=== PATIENT | female | born 1990 | race Caucasian/White ===

== ENCOUNTER 2020-11-10 16:11 | Emergency (ER) | payer OTHER, SELFPAY ==
[2020-11-10 16:22] VITALS: BP 130/83; PULSE 95; RESP 12; TEMP 36.9; O2SAT 100
--- NOTE | 2020-11-10 16:33 | ED.URI ---
HPI - URI/Sore Throat General Chief Complaint: Upper Respiratory Infection Stated Complaint: ITCHY THROAT/CONGESTION Source: patient and RN notes reviewed Limitations: no limitations History of Present Illness HPI Narrative: The patient, previously mostly healthy and here with other sick family members, presents with scratchy throat. Mother brought her child in for URI type symptoms and, mentions she has a shorter 1 day history of scratchy, itchy throat and nasal congestion. No fever, earache, cough, wheezing/sneezing, itchy eyes or nose; no prior Covid vaccinations, no loss of taste/smell, CP, vomiting/diarrhea, rash, S OB. Symptoms are very mild Related Data Home Medications Medication Instructions Recorded Confirmed sertraline 100 mg PO DAILY 11/10/20 11/10/20 Allergies Allergy/AdvReac Type Severity Reaction Status Date / Time No Known Allergies Allergy Mild Verified 11/10/20 16:24 No Known Allergies Allergy Other Uncoded 11/10/20 16:24 Review of Systems Review of Systems: Narrative: General/Constitutional: No weight loss,fever Eyes: N0: Redness,discharge Ears/Nose/Throat: No: Epistaxis,ear discharge Respiratory: Denies: Hemoptysis Gastrointestinal: No Vomiting, Bleeding-rectal Skin: No Lumps, eruption Neurologic: No Focal Weakness,Sz Hematologic: Denies: Petechiae/Purpura Psychiatric: No: Suicida ideationl All Other Systems: Reviewed and Negative PMFSH Comments At time of signature, agree with nursing past medical, surgical, social and family history. There is no relevant family history pertinent to the presenting complaint Exam Narrative: Exam Narrative: General Appearance: Well appearing, Well nourished EYE: PERRLA, Conjunctiva clear Ears: Auditory canal normal, TM normal Nose: Rhinorrhea, Mucousal erythema Mouth/Throat: MM moist, Uvula midline, Pharyngeal erythema Neck: Supple, No adenopathy Respiratory: No respiratory distress, Breath sounds equal, Clear to auscultation Cardiovascular: RRR, No JVD Musculoskeletal: Non tender, Normal strength Skin: Warm, Dry Neurological: A&O x3, CN II-XII intact Psychiatric: Normal mood, Normal affect Course Vital Signs Vital signs: Vital Signs Temperature 98.5 F 11/10/20 16:22 Pulse Rate 95 11/10/20 16:22 Respiratory Rate 12 11/10/20 16:22 Blood Pressure 130/83 11/10/20 16:22 Pulse Oximetry 100 11/10/20 16:22 Temperature 98.5 F 11/10/20 16:22 Pulse Rate 95 11/10/20 16:22 Respiratory Rate 12 11/10/20 16:22 Blood Pressure 130/83 11/10/20 16:22 Pulse Oximetry 100 11/10/20 16:22 MDM - URI/Sore Throat Lab Data Labs: Strep Screen Presumptive Negative *(Reference Range: Negative)* Discharge Plan Discharge Clinical Impression: Pharyngitis Qualifiers: Pharyngitis/tonsillitis etiology: unspecified etiology Qualified Code(s): J02.9 - Acute pharyngitis, unspecified Patient Disposition: Home, Self-Care Condition: Stable Instructions: Antibiotic Form, Pharyngitis (ED) Prescriptions: New azithromycin 250 mg tablet See Rx Instructions .ROUTE .COMPLEX Qty: 6 RF: 0 lidocaine HCl [Lidocaine Viscous] 2 % solution 5 ml MUCOUS MEM QID PRN (Reason: pain) Qty: 100 RF: 0 No Action sertraline 100 mg tablet 100 mg PO DAILY RF: 0 Other Ambulatory Orders: SARS-CoV-2 RNA, Qual RT-PCR (Routine) Location: Determined by Patient Ordered By: Juan Rivera Follow-up/Referrals: UNKNOWN,DOCTOR [Primary Care Provider] -
== END 2020-11-10 17:14 | disposition home or self-care (01) ==
PROVIDERS: Emergency Provider Emergency Medicine
DX: J02.9 Acute pharyngitis, unspecified (principal); Z20.822 Contact with and (suspected) exposure to COVID-19; F41.9 Anxiety disorder, unspecified
CPT/HCPCS: 87081; 87880; 99213; G0463

== ENCOUNTER 2022-01-07 13:07 | Outpatient (CLI) | payer OTHER, SELFPAY ==
[2022-01-07 13:46] LABS: Free T4 Free Thyroxine 0.89 ng/dL (0.76-1.46); Thyroid Stimulating Hormone 1.31 uIU/mL (0.36-3.74)
[2022-01-09 12:22] LABS: Vitamin D 25 Hydroxy 21 ng/mL (30-100)
== END 2022-01-07 13:08 | disposition home or self-care (01) ==
LOC: CHSLAB 13:09
PROVIDERS: Visit Provider Obstetrics & Gynecology Gynecology
DX: E55.9 Vitamin D deficiency, unspecified (principal); Z83.49 Family history of other endocrine, nutritional and metabolic diseases
CPT/HCPCS: 36415; 82306; 84439; 84443

== ENCOUNTER 2022-08-13 11:42 | Emergency (ER) | payer OTHER, SELFPAY ==
[2022-08-13 11:50] VITALS: BP 129/84; PULSE 97; RESP 16; TEMP 36.9; O2SAT 99
--- NOTE | 2022-08-13 11:51 | ED.ABDPAIN ---
HPI - Abdominal Pain General Chief Complaint: Abdominal Pain Stated Complaint: LOWER ABD PAIN Time Seen by Provider: 08/13/22 11:51 Source: patient and RN notes reviewed History of Present Illness HPI narrative: Patient is a 32-year-old female who presents to the Urgent Care with complaints of lower right-sided abdominal discomfort. Patient states it started today. Denies any chance of . States that she does have a lot of gas pains and intermittent nausea occasionally which is nothing new. Patient states that she just got off her menstrual cycle yesterday and was abnormal. Patient states that she spotted, started to cycle and then have light spotting for 3 days. Denies any fevers, vomiting or diarrhea. Patient does state a history of a ruptured ovarian cyst on the right side approximately 15 years ago. No other acute complaints. No acute distress noted. Patient aware of the plan of care. Some parts of this dictation were generated by voice recognition software and may contain typographical and/or grammatical inaccuracies. Related Data Home Medications Medication Instructions Recorded Confirmed sertraline 100 mg tablet 100 mg PO DAILY 11/10/20 11/10/20 Allergies Allergy/AdvReac Type Severity Reaction Status Date / Time No Known Allergies Allergy Mild Verified 08/13/22 12:25 Review of Systems Review of Systems: CONSTITUTIONAL: Denies fever, chills, or sweats. EYES: Denies visual changes, redness, or discharge. ENT: Denies rhinorrhea, congestion, sore throat, or otalgia. CARDIOVASCULAR: Denies chest pain, palpitations, or edema. RESPIRATORY: Denies cough or dyspnea. GASTROINTESTINAL: Reports of right lower abdominal discomfort with intermittent nausea and gas pains GENITOURINARY: Denies dysuria or hematuria. SKIN: Denies rash or itching. MUSCULOSKELETAL: Denies back pain, joint pain, or myalgia. NEUROLOGIC: Denies headache, numbness, or weakness. All other systems reviewed are negative, except as documented in HPI. PMFSH Comments At the time of my signature, I reviewed and agree with the nursing past medical, surgical, social, and family history. There is no relevant family history pertinent to the patient complaint. Exam Narrative: GENERAL: This is a well-nourished, well-developed patient, in no apparent distress. HEAD: normocephalic, atraumatic. EYES: PERRL. Sclera clear/white. Vision is grossly intact. EARS: External ears normal NOSE: External nose normal with no obvious nasal discharge, nares without redness, no rhinorrhea. THROAT: Mucous membranes moist NECK: Neck supple RESPIRATORY: Clear to auscultation. Breath sounds equal bilaterally. No wheezes, rales, or rhonchi. GASTROINTESTINAL: Abdomen soft, mild right suprapubic tenderness, nondistended. Bowel sounds are hyper active. SKIN: warm, intact with no suspicious lesions or rash, good texture and turgor. NEURO: awake, alert, and oriented to person, place and time. There were no obvious focal neurologic abnormalities. EXTREMITIES: No clubbing, cyanosis, or edema. BACK: Negative bilateral CVA tenderness Course Course Level of Care: Express Care Visit Vital Signs Vital signs: Vital Signs Temperature 98.4 F 08/13/22 11:50 Pulse Rate 97 08/13/22 11:50 Respiratory Rate 16 08/13/22 11:50 Blood Pressure 129/84 08/13/22 11:50 Pulse Oximetry 99 08/13/22 11:50 Temperature 98.4 F 08/13/22 11:50 Pulse Rate 97 08/13/22 11:50 Respiratory Rate 16 08/13/22 11:50 Blood Pressure 129/84 08/13/22 11:50 Pulse Oximetry 99 08/13/22 11:50 Reviewed MDM - Abdominal Pain MDM Narrative Medical decision making narrative: Reviewed lab results with the patient. She is aware that urinalysis is not indicative of urinary tract infection. Symptoms may be consistent with repeat ovarian cyst. Unfortunately our facility is unable to evaluate ovarian cyst due to the lack of resources. We do not have ultrasound. If she devel
== END 2022-08-13 12:35 | disposition home or self-care (01) ==
PROVIDERS: Emergency Provider Nurse Practitioner Family; PCP Family Medicine
DX: R10.31 Right lower quadrant pain (principal)
CPT/HCPCS: 81003; 99212; G0463

== ENCOUNTER 2022-08-21 12:20 | Outpatient (CLI) | payer OTHER, SELFPAY ==
--- NOTE | ~2022-08-21 | US_ITS ---
EXAMINATION: US pelvic complete w TV DATE: 08/21/2022 12:58 INDICATION: Right pelvic pain. History of cysts. Comparison:Ultrasound dated 09/30/2018 TECHNIQUE: Multiple transabdominal and endovaginal sonographic images of the pelvis performed. FINDINGS: The uterus measures 9.1 x 6.0 x 4.4 cm. The endometrial complex measures 1.3 cm. The right ovary measures 2.4 x 2.3 x 2.7 cm and the left ovary measures 2.2 x 1.8 x 2.2 cm. There is trace fluid in the cervix. There are nabothian cysts. There is a left ovarian cyst measuring 2.1 cm. There is a right ovarian cyst measuring 1.8 cm. There are small follicles in each ovary. Normal doppl er signal in both ovaries. There is no free fluid in the pelvis. There are no abnormal masses seen on either side. IMPRESSION: 1. Nabothian cysts with trace fluid in the cervix. 2: Endometrial thickening measuring 1.3 cm. 3: Bilateral ovarian cysts, largest measuring 2.1 cm. Reviewed, dictated and finalized at location A. [employer]IC[employer] PHYSICIAN
== END 2022-08-21 12:21 | disposition home or self-care (01) ==
LOC: CHSIMG 12:22
PROVIDERS: PCP Family Medicine; Visit Provider Nurse Practitioner
DX: R10.2 Pelvic and perineal pain (principal); N88.8 Other specified noninflammatory disorders of cervix uteri; R93.89 Abnormal findings on diagnostic imaging of other specified body structures; N83.202 Unspecified ovarian cyst, left side; N83.201 Unspecified ovarian cyst, right side
CPT/HCPCS: 76830; 76856

== ENCOUNTER 2022-09-15 18:18 | Outpatient (CLI) | payer OTHER, SELFPAY ==
--- NOTE | ~2022-09-15 | XR_ITS ---
AP view of the pelvis and AP and lateral views of the bilateral hips Clinical history: Pain Findings: No acute fracture or dislocation is seen. Osseous alignment is anatomic. Bilateral hip and SI joint spaces are preserved. Soft tissues are unremarkable. Impression: No significant abnormality is seen. Reviewed, dictated and finalized at location . Impression: No significant abnormality is seen.
[2022-09-15 19:12] LABS: Hematocrit 44.4 % (35.0-49.0); Hemoglobin 15.4 g/dL (12.0-15.0); Mean Corpuscular HGB Conc 34.7 g/dL (32.0-36.0); Mean Corpuscular Hemoglobin 32.2 pg (27.0-31.0); Mean Corpuscular Volume 92.9 fL (78.0-102.0); Mean Platelet Volume 10.1 fl (9.2-11.8); Platelet Count Result 352 K/mm3 (150-420); Red Blood Count 4.78 M/mm3 (4.20-5.40); Red Cell Distribution Width 11.7 % (11.6-14.4); White Blood Count 6.9 K/mm3 (4.8-10.8)
[2022-09-15 20:22] LABS: Alanine Aminotransferase 35 U/L (14-59); Albumin Level 4.1 g/dL (3.4-5.0); Alkaline Phosphatase 63 U/L (46-116); Anion Gap 9 mmol/L (8-16); Aspartate Amino Transferase 23 U/L (15-37); Bilirubin,Total 0.3 mg/dL (0.00-1.00); Blood Urea Nitrogen 8 mg/dL (7-18); Carbon Dioxide 28 mmol/L (21-32); Chloride 103 mmol/L (98-108); Cholesterol 253 mg/dL (0-200); Estimated Glomerular Filt Rate > 60; Glucose 93 mg/dL (70-99); HDL Direct 38 mg/dL (40-60); LDL Cholesterol Calculated 138 mg/dL (<130); Osmolality Calculated 288 mOsm/kg (285-295); Potassium 4.3 mmol/L (3.5-5.1); Sodium 140 mmol/L (136-145); Total Protein 7.4 g/dL (6.4-8.2); Triglycerides 387 mg/dL (0-150); Vitamin B12 523 pg/mL (193-986)
[2022-09-15 20:23] LABS: Folic Acid > 20.0 ng/mL (8.6->20)
[2022-09-21 20:02] LABS: Vitamin D 25 Hydroxy 29 ng/mL (30-100)
== END 2022-09-15 18:19 | disposition home or self-care (01) ==
PROVIDERS: PCP Family Medicine; Visit Provider Nurse Practitioner Family
DX: R53.83 Other fatigue (principal); Z68.39 Body mass index [BMI] 39.0-39.9, adult; K92.89 Other specified diseases of the digestive system; M25.551 Pain in right hip
CPT/HCPCS: 36415; 73521; 80053; 80061; 82306; 82607; 82746; 85027; 86038

== ENCOUNTER 2022-11-04 13:52 | Emergency (ER) | payer OTHER, SELFPAY ==
--- NOTE | ~2022-11-04 | XR_ITS ---
EXAM: XR hip LT min 2V DATE: 11/04/2022 15:55 HISTORY: LEFT POSTERIOR HIP PAIN ONE WEEK. NKI. . COMPARISON: None available. FINDINGS: Normal mineralization. No fracture or dislocation. No lytic or blastic lesion. Degenerativ e change at the pubic symphysis. No erosion or periosteal change. Soft tissues within normal limits. Partial sacralization of L5 on the right, with pseudoarthrosis and facet arthropathy on the right, al l of which may cause of chronic low back pain in some patients. IMPRESSION: No acute osseous finding in the left hip. Osteitis pubis. Reviewed, dictated and finalized at location K.
[2022-11-04 14:00] VITALS: BP 152/97; PULSE 106; RESP 18; TEMP 36.6; O2SAT 98
--- NOTE | 2022-11-04 14:16 | ED.EXTPRO ---
HPI - Extremity Problem General Chief complaint: Extremity Problem,Nontraumatic Stated complaint: left hip pain Time Seen by Provider: 11/04/22 14:10 Source: patient and RN notes reviewed Mode of arrival: ambulatory Limitations: no limitations History of Present Illness HPI Narrative: Patient states that she has been having some hip pain for a long time now but worsened last 7 days. She has been seen in the office for this at that time had right hip pain and had an x-ray in September the visit was in August. She denies any new injury. She says it just hurts to walk on hurts to lay on the left side. Complaint: extremity pain Onset (ago): week(s) (1) Pain Consistency: constant Location: left and lower extremity (hip) Quality: aching and dull Radiation: distal ( into her calf that is why she came in) Relieving factors: nothing Exacerbating factors: range of motion, weight bearing and walking Associated symptoms: denies other symptoms Related Data Allergies Allergy/AdvReac Type Severity Reaction Status Date / Time No Known Allergies Allergy Mild Verified 08/27/22 14:25 PMFSH Past Medical History Medical History BMI 39.0-39.9,adult Depression Elevated lipids Low vitamin D level Social History Social History Smoking status: Unknown if ever smoked Exam Const: General: healthy appearing and no acute distress Nutritional Appearance: well nourished and obese Orientation/consciousness: patient oriented x3 Limitations: no limitations Other: Female nurse in room during examination. HENMT: Head: normal to inspection Ears: external ears normal Face/Nose/Sinus: Normal external nose present Face and sinus: normal facial exam Mouth: Yes moist mucous membranes Eyes: Conjunctivae: conjunctivae normal Pupils: Equal, round and reactive pupils present EOM: EOMs intact bilaterally Neck: Neck: normal visual inspection Resp: Effort & Inspection: normal respiratory effort Auscultation: clear to auscultation bilaterally Cardio: Rate: regular rate Rhythm: regular rhythm GI: GI Palp: Yes Soft to palpation and No Tenderness to palpation present (GI) Auscultation: normal bowel sounds Back/Spine/Pelvis: Cervical Spine: cervical ROM normal Thoracic/Lumbar Spine: thoraco-lumbar ROM normal, No paraspinal muscle tenderness, No thoraco-lumbar spasm and No lumbar spinal tenderness Skin: General skin exam: normal color Rashes: no rashes Neuro: General: patient oriented x3, moves all extremities, no focal motor deficits and CN's II-XI intact bilaterally Speech: normal speech Gait exam (Neuro): Normal gait present Extrem: General: normal exam except as noted, no clubbing, cyanosis or edema and no calf tenderness Right lower extremity: hip/thigh Details: tenderness Location: of the hip Location: posteriorly and over the greater trochanter and abnormal ROM Details: pain with passive ROM during Details: to ABduction, to flexion, to internal rotation and to external rotation Psych: Mental Status: mental status grossly normal Affect: normal affect Attitude: cooperative Course Vital Signs Vital signs: Vital Signs Temperature 36.6 C 11/04/22 14:00 Pulse Rate 106 H 11/04/22 14:00 Respiratory Rate 18 11/04/22 14:00 Blood Pressure 152/97 H 11/04/22 14:00 Pulse Oximetry 98 11/04/22 14:00 Oxygen Delivery Room Air 11/04/22 14:00 Temperature 36.9 C 11/04/22 16:39 Pulse Rate 73 11/04/22 16:39 Respiratory Rate 18 11/04/22 16:39 Blood Pressure 119/72 11/04/22 16:39 Pulse Oximetry 97 11/04/22 16:39 Oxygen Delivery Room Air 11/04/22 16:39 MDM - Extremity (Nontraumatic) Differential Diagnosis Differential diagnosis: Likely other ( osteoarthritis, muscle strain, overuse injury, lumbar pain) Discharge Plan Discharge Clinical Impression: Acute hip pain Qualifiers: Laterality: lef
[2022-11-04 14:59] VITALS: BP 125/80
[2022-11-04] MEDS: KETOROLAC (*BKC) 60 MG/2 ML VIAL (16:04)
[2022-11-04 16:39] VITALS: BP 119/72; PULSE 73; RESP 18; TEMP 36.9; O2SAT 97
== END 2022-11-04 16:47 | disposition home or self-care (01) ==
PROVIDERS: Emergency Provider Emergency Medicine; PCP Nurse Practitioner Family
DX: M25.552 Pain in left hip (principal)
CPT/HCPCS: 73502; 96372; 99283; J1885

== ENCOUNTER 2022-11-05 13:06 | Outpatient (RCR) | payer OTHER, SELFPAY ==
--- NOTE | 2022-11-05 13:49 | PTOPEVAL1 ---
Assessment and note entered by Khoi Smith Evaluation Information Assessment Status Evaluation Diagnosis right hip pain Onset 12/04/21 Subjective Information Pt. reports that she began developing hip pain in December of last year. She describes her pain in the area of the left buttock. She reports that her pain is constant. She reports that she cannot lay on the left side due to pain. She does get mm. cramps and spasms if attempting to lay on the left side. She reports that long periods of standing will ease her pain. She reports sitting on the left side also will increase pain. She reports that her pain as worsened over the past year. She states that she has a 3 year old son that she cannot lift due to pain. She is currently not working. She states that she cannot drive due to increasing pain with attempting to drive. She reports that she is losing sleep due to pain. Her goal is to decrease her hip pain. Reported Pain Level Pain Score 5: Self Report Assessment PT Clinical Summary Pt. is a 32 year old female who enters the clinic with low back pain/left hip pain. She presents with indication of lumbar instability as noted by pain with multidirectional movement. She currently presents with abdominal and proximal l.e . weakness, impaired postural awareness and pain. Continued skilled PT is indicated in order to improve these areas to allow the pt. to be able to complete all IADL's with improved comfort. Plan of Care Interventions Electrical Stimulation,Hot Pack/Cold Pack,Manual Therapy,Neuro Re-education,Therapeutic Activities, Therapeutic Exercise PT Services Indicated Yes Treatment Frequency and 2x/week x 10 visits Duration These treatments will address the objective and functional deficits as defined above. The patient will be advanced safely and appropriately in order for the patient to progress towards his/her prior level of function. Additional exercises will be introduced and as well as a comprehensive home exercise program upon discharge, if needed, ?to ensure carryover of functional gains achieved in the clinic. This treatment plan has been reviewed and agreement upon by the patient.
--- NOTE | 2022-12-25 15:10 | PTOPDC ---
Assessment and note entered by Anca Cornejo DPT Evaluation Information Assessment Status Re-evaluation Diagnosis right hip pain Onset 12/04/21 Subjective Information Patient reports her pain has greatly improved. She reports she has been able to return to driving and yard work. She does report she gets muscle spasms at time when she stands up. She reports she is compliant with HEP Reported Pain Level Pain Score 0: Self Report Assessment PT Clinical Summary Patient was seen for 10 visits of skilled PT. She made good progress towards goals during POC. She demonstrates full lumbar ROM with no increase in pain, improved B LE strength and improved flexibility. She reports ability to return to driving and house hold work at [employer]. She is independent with HEP and is appropriate for DC. Plan of Care PT Services Indicated No
== END 2022-12-25 15:19 | disposition home or self-care (01) ==
LOC: CHSPT 13:06
PROVIDERS: PCP Nurse Practitioner Family; Visit Provider Nurse Practitioner Family
DX: M25.551 Pain in right hip (principal)
CPT/HCPCS: 97110; 97112; 97140; 97161

== ENCOUNTER 2024-05-18 16:58 | Emergency (ER) | payer OTHER, SELFPAY ==
[2024-05-18] VITALS (32 sets, daily range): BP systolic 113–148; BP diastolic 83–107; PULSE 102–134; RESP 15–25; TEMP 37.3; O2SAT 93–99
--- NOTE | ~2024-05-18 | CT_ITS ---
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 Pulmonary embolus suspected clinically TECHNIQUE: Computed tomographic angiography (CTA) of the chest was performed with 100 mL Omnipaque-35 0 intravenous contrast. The dose-length product was 229.53 mGy-cm. Maximum intensity projection 3D-re constructions of the aorta and other arteries were constructed by the technologist on a separate work station. COMPARISON: None. FINDINGS: No filling defects are identified within the main or proximal pulmonary arteries. The main pulmonary artery is not enlarged. The heart is of normal size, without pericardial effusion. Consolidation is present within the superior segment of the right lower lobe, consistent with a foca l infiltrate. The remainder of the lungs are clear. The upper abdomen is unremarkable IMPRESSION: Infiltrate within the superior segment of the right lower lobe. No pulmonary embolus. No aortic dissection. Reviewed, dictated and finalized at location A. BUILDER AND REPAIRER
--- NOTE | 2024-05-18 17:07 | ECG_ITS ---
Test Date: 2024-05-18 17:04:56 Measurements Intervals [place] Rate: 119 P: 59 MA: 134 QRS: 84 QRSD: 101 T: 55 QT: 319 QTc: 449 Interpretive Statements SINUS TACHYCARDIA ABNORMAL ECG No previous ECG available for comparison Electronically Signed On 05-19-2024 05:35:05 [employer] by Gareth Alvarado D.O.
--- NOTE | 2024-05-18 17:27 | ED_ITS ---
HPI - URI/Sore Throat General Chief Complaint: Upper Respiratory Infection Stated Complaint: elevated heart rate Time Seen by Provider: 05/18/24 17:27 Source: patient Mode of arrival: ambulatory Limitations: no limitations History of Present Illness HPI Narrative: 33-year-old female history of OCD, depression, dyslipidemia presented to her primary care physician with a 1 week history of -- subjective fever -- cough which is productive of mucoid sputum. She has had episodes of blood tinged sputum. -- Shortness of breath. No paroxysmal nocturnal dyspnea. -- Sore throat. No odynophagia .-- No nasal congestion but feels the sinuses are congested and has postnasal drip. MD elicited complaint: fever, cough, sore throat and sinus pain Pertinent past history: sinusitis Onset (ago): day(s) ( Seven days) Consistency: constant Description of mucous: clear Able to tolerate fluids by mouth: Yes Exacerbating factors: nothing Relieving factors: nothing Context: sick contacts Associated symptoms: denies other symptoms, fever, nasal congestion, cough and shortness of breath Treatments prior to arrival: none Related Data Allergies Allergy/AdvReac Type Severity Reaction Status Date / Time No Known Allergies Allergy Mild Verified 05/18/24 16:04 Review of Systems Review of Systems: All systems reviewed & are unremarkable except as noted in HPI and below Constitutional: Constitutional: Reports as per HPI, Reports no additional constitutional complaints and Reports fever(s) Eyes: Eyes: Reports as per HPI and Reports no additional eye complaints ENT: Reports system reviewed and no additional complaints, except as documented and Reports as per HPI Cardiovascular: Cardiovascular: Reports as per HPI and Reports no additional cardiovascular complaints Respiratory: Respiratory: Reports as per HPI, Reports no additional respiratory complaints, Reports cough and Reports dyspnea Gastrointestinal: Gastrointestinal: Reports as per HPI and Reports no additional gastrointestinal complaints Comments: no nausea/vomiting /abdominal pain / diarrhea. Genitourinary: Genitourinary: Reports no additional female genitourinary complaints Musculoskeletal: Musculoskeletal: Reports no additional musculoskeletal complaints, Reports as per HPI and Reports myalgias Integumentary/Breasts: Skin/Breast: Reports system reviewed and no additional complaints, except as docu and Reports as per HPI Neurologic: Reports system reviewed and no additional complaints, except as documented and Reports as per HPI Psychiatric: Psychiatric: Reports no additional psychiatric complaints and Reports as per HPI Endocrine: Endocrine: Reports no additional endocrine complaints and Reports as per HPI Hematologic/Lymphatic: Hematologic/Lymphatic: Reports no additional hematologic/lymphatic complaints and Reports as per HPI Allergic/Immunologic: Allergic/Immunologic: Reports no additional allergic/immunologic complaints and Reports as per HPI [facility] Past Medical History Medical History BMI 39.0-39.9,adult Depression Elevated lipids Low vitamin D level Family History Family History Grandparent Carcinoma of skin Heart disease Social History Social History Smoking packs per day: 0 Smoking cigarettes per day: 0.0 Smoking status: Never smoker Exam Narrative: Hypertension with a blood pressure of 143/91. Oxygen saturation 96% on room air with a respiratory Const: General: no acute distress Nutritional Appearance: well nourished Orientation/consciousness: patient oriented x3 Limitations: no limitations HENMT: Head: normal to inspection Ears: external ears normal Face/Nose/Sinus: Normal external nose present Face and sinus: normal facial exam Mouth: Yes Normal oral and palatal mucosa present Throat: posterior oropharynx normal Eyes: Conjunctivae: conjunctivae normal Pupils: Equal, round and reactive pupils present EOM: EOMs intact bilaterally Direct Ophthalmoscopy: no photophobia Neck: Neck: normal visual inspection, no lymphadenopathy and no meningeal signs Chest: Chest palpation & inspection: normal inspection of the chest Resp: Effort & Inspection: normal respiratory effort Auscultation: clear to auscultation bilaterally Cardio: Rate: tachycardic Rhythm: regular rhythm GI: GI Palp: Yes Soft to palpation Other: No tenderness/ rigidity /rebound. : General: Yes no CVA tenderness Back/Spine/Pelvis: Back: no CVA tenderness Skin: General skin exam: normal color Rashes: no rashes Wounds: no wounds Neuro: General: patient oriented x3, moves all extremities, no meningeal signs, no focal motor deficits and CN's II-XI intact bilaterally Cranial nerves: Yes Nystagmus not present Speech: normal speech Gait exam (Neuro): Normal gait present Extrem: General: normal to inspection and no clubbing, cyanosis or edema Psych: Mental Status: mental status grossly normal Affect: normal affect Attitude: cooperative Course Course Emergency Course: right lower lobe pneumonia /community-acquired pneumonia-- patient tested negative for influenza/ RSV / COVID. Blood cultures have been done. Patient got Rocephin and Zithromax. Will discharge home on Zithromax and amoxicillin upper respiratory tract infection Vital Signs Vital signs: Vital Signs Pulse Rate 118 H 05/18/24 16:58 Oxygen Delivery Room Air 05/18/24 16:58 Temperature 37.3 C 05/18/24 17:00 Pulse Rate 106 H 05/18/24 20:00 Respiratory Rate 25 H 05/18/24 19:15 Blood Pressure 129/92 H 05/18/24 20:00 Pulse Oximetry 95 05/18/24 20:00 Oxygen Delivery Room Air 05/18/24 20:00 MDM - URI/Sore Throat MDM Narrative Medical decision making narrative: community-acquired pneumonia upper respiratory tract infection Differential Diagnosis Differential diagnosis: Likely viral infection and bronchitis Medical Records Attestation: I reviewed the patient's medical records. Lab Data Attestation: I reviewed the patient's lab results. 05/18/24 17:57 05/18/24 17:57 Labs: Lab Results 05/18/24 05/18/24 05/18/24 Range/Units 17:12 17:54 17:57 WBC 6.2 (4.8-10.8) K/mm3 RBC 4.66 (4.20-5.40) M/mm3 Hgb 14.8 (12.0-15.0) g/dL Hct 40.9 (35.0-49.0) % MCV 87.8 (78.0-102.0) fL MCH 31.8 H (27.0-31.0) pg MCHC 36.2 H (32-36) g/dL RDW 11.7 (11.6-14.4) % Plt Count 287 (150-420) K/mm3 MPV 10.2 (9.2-11.8) fl Immature Gran % (Auto) 0.3 H (0.0-0.0) % Neut % (Auto) 74.1 H (50.0-70.0) % Lymph % (Auto) 13.5 L (18.0-42.0) % [place] % (Auto) 11.0 (2.0-11.0) % Eos % (Auto) 0.8 L (1.0-6.0) % Baso % (Auto) 0.3 (0.0-1.0) % Lymph # (Auto) 0.83 L (1.10-4.50) K/mm3 [place] # (Auto) 0.68 (0.10-0.90) K/mm3 Eos # (Auto) 0.05 (0.02-0.50) K/mm3 Baso # (Auto) 0.02 (0.00-0.10) K/mm3 Abs Immat Gran (auto) 0.02 H (0.00-0.00) K/mm3 Absolute Neuts (auto) 4.56 (1.70-7.20) K/mm3 Absolute Nucleated RBC 0.00 (0.00-0.00) K/mm3 Nucleated RBC % 0.0 (0-0.0) % PT 11.5 (9.50-12.1) Seconds INR 1.1 APTT 34.9 H (23.9-30.70) Sec D-Dimer 0.57 H* (0.19-0.50) mg/L Sodium 137 (136-145) mmol/L Potassium 2.9 L (3.5-5.1) mmol/L Chloride 98 (98-108) mmol/L Carbon Dioxide 29 (21-32) mmol/L Anion Gap 10 (4-12) mmol/L BUN 5 L (7-18) mg/dL Creatinine 0.85 (0.55-1.02) mg/dL Estim Creat Clear Calc 89 ml/min Estimated GFR > 60 (59 - ) Glucose 129 H (70-99) mg/dL Calculated Osmolality 283 L (285-295) mOsm/kg Lactic Acid 1.4 (0.4-2.0) mmol/L Calcium 9.0 (8.5-10.1) mg/dL Total Bilirubin 0.4 (0.00-1.00) mg/dL AST 24 (15-37) U/L ALT 15 (14-59) U/L Alkaline Phosphatase 58 (46-116) U/L Troponin I < 4.0 (0.00-60.4) ng/L Total Protein 7.2 (6.4-8.2) g/dL Albumin 3.1 L (3.4-5.0) g/dL TSH 0.81 (0.36-3.74) uIU/mL TSH (Reflex) Estrogen Progesterone Random Cortisol Urine Color Light yellow (Yellow) Urine Appearance Clear (Clear) Urine pH 6.0 (5.0-8.0) Ur Specific [place] <= 1.005 L (1.010-1.020) Urine Protein Negative (Negative) Urine Glucose (UA) Negative (Negative) Urine Ketones Negative (Negative) Ur Blood (Man) 3+ H (Negative) Urine Nitrate Negative (Negative) Urine Bilirubin Negative (Negative) Urine Urobilinogen 0.2 (0.2-1.0) mg/dL Leukocyte Esterase Rfl Trace H (Negative) SHARONA/UL Urine RBC 3-5 H (0-2) /hpf Urine WBC 0-3 (0-3) /hpf Ur Squamous Epith Cells Few (Few) /hpf Urine Bacteria 1+ H (None) /hpf Urine Test Negative Influenza A (RT-PCR) Negative (Negative) Influenza B (RT-PCR) Negative (Negative) RSV (RT-PCR) Negative (Negative) SARS-CoV-2 RNA (RT-PCR) Negative (Negative) Group A Strep (PCR) Not detected (Negative) 05/18/24 Range/Units 18:08 WBC (4.8-10.8) K/mm3 RBC (4.20-5.40) M/mm3 Hgb (12.0-15.0) g/dL Hct (35.0-49.0) % MCV (78.0-102.0) fL MCH (27.0-31.0) pg MCHC (32-36) g/dL RDW (11.6-14.4) % Plt Count (150-420) K/mm3 MPV (9.2-11.8) fl Immature Gran % (Auto) (0.0-0.0) % Neut % (Auto) (50.0-70.0) % Lymph % (Auto) (18.0-42.0) % [place] % (Auto) (2.0-11.0) % Eos % (Auto) (1.0-6.0) % Baso % (Auto) (0.0-1.0) % Lymph # (Auto) (1.10-4.50) K/mm3 [place] # (Auto) (0.10-0.90) K/mm3 Eos # (Auto) (0.02-0.50) K/mm3 Baso # (Auto) (0.00-0.10) K/mm3 Abs Immat Gran (auto) (0.00-0.00) K/mm3 Absolute Neuts (auto) (1.70-7.20) K/mm3 Absolute Nucleated RBC (0.00-0.00) K/mm3 Nucleated RBC % (0-0.0) % PT (9.50-12.1) Seconds INR APTT (23.9-30.70) Sec D-Dimer (0.19-0.50) mg/L Sodium (136-145) mmol/L Potassium (3.5-5.1) mmol/L Chloride (98-108) mmol/L Carbon Dioxide (21-32) mmol/L Anion Gap (4-12) mmol/L BUN (7-18) mg/dL Creatinine (0.55-1.02) mg/dL Estim Creat Clear Calc ml/min Estimated GFR (59 - ) Glucose (70-99) mg/dL Calculated Osmolality (285-295) mOsm/kg Lactic Acid (0.4-2.0) mmol/L Calcium (8.5-10.1) mg/dL Total Bilirubin (0.00-1.00) mg/dL AST (15-37) U/L ALT (14-59) U/L Alkaline Phosphatase (46-116) U/L Troponin I (0.00-60.4) ng/L Total Protein (6.4-8.2) g/dL Albumin (3.4-5.0) g/dL TSH (0.36-3.74) uIU/mL TSH (Reflex) Cancelled Estrogen Pending Progesterone Pending Random Cortisol Pending Urine Color (Yellow) Urine Appearance (Clear) Urine pH (5.0-8.0) Ur Specific [place] (1.010-1.020) Urine Protein (Negative) Urine Glucose (UA) (Negative) Urine Ketones (Negative) Ur Blood (Man) (Negative) Urine Nitrate (Negative) Urine Bilirubin (Negative) Urine Urobilinogen (0.2-1.0) mg/dL Leukocyte Esterase Rfl (Negative) SHARONA/UL Urine RBC (0-2) /hpf Urine WBC (0-3) /hpf Ur Squamous Epith Cells (Few) /hpf Urine Bacteria (None) /hpf Urine Test Influenza A (RT-PCR) (Negative) Influenza B (RT-PCR) (Negative) RSV (RT-PCR) (Negative) SARS-CoV-2 RNA (RT-PCR) (Negative) Group A Strep (PCR) (Negative) Discharge Plan Discharge Clinical Impression: Upper respiratory infection Qualifiers: URI type: unspecified URI Qualified Code(s): J06.9 - Acute upper respiratory infection, unspecified Community acquired pneumonia Qualifiers: Laterality: right Lung location: lower lobe of lung Qualified Code(s): J18.9 - Pneumonia, unspecified organism Patient Disposition: Home, Self-Care Condition: Stable Instructions: Antibiotic Form, Upper Respiratory Infection (ED), Community Acquired Pneumonia (ED) Patient Language: French Prescriptions: New amoxicillin 500 mg capsule 1,000 mg PO Q8H Qty: 21 0RF azithromycin [Zithromax] 250 mg tablet 250 mg PO DAILY 4 Days Qty: 4 0RF Rx Instructions: start on day 2 of therapy Follow-up/Referrals: Andria Starr APRN [Primary Care Provider] -
[2024-05-18 17:51] LABS: Strep Group A RT-PCR NOT DETECTED (Negative)
[2024-05-18 17:52] LABS: SARS-CoV-2 RNA PCR Negative (Negative)
[2024-05-18 17:57] LABS: Influenza A QL RT-PCR Negative (Negative); Influenza B QL RT-PCR Negative (Negative); RSV RNA, RT-PCR Negative (Negative)
[2024-05-18 18:00] LABS: Basophils Absolute Auto 0.02 K/mm3 (0.00-0.10); Basophils Percent Auto 0.3 % (0.0-1.0); Eosinophils Absolute Auto 0.05 K/mm3 (0.02-0.50); Eosinophils Percent Auto 0.8 % (1.0-6.0); Hematocrit 40.9 % (35.0-49.0); Hemoglobin 14.8 g/dL (12.0-15.0); Immature Granulocyte Absolute 0.02 K/mm3 (0.00-0.00); Immature Granulocyte Percent A 0.3 % (0.0-0.0); Lymphocytes Absolute Auto 0.83 K/mm3 (1.10-4.50); Lymphocytes Percent Auto 13.5 % (18.0-42.0); Mean Corpuscular HGB Conc 36.2 g/dL (32-36); Mean Corpuscular Hemoglobin 31.8 pg (27.0-31.0); Mean Corpuscular Volume 87.8 fL (78.0-102.0); Mean Platelet Volume 10.2 fl (9.2-11.8); Monocytes Absolute Auto 0.68 K/mm3 (0.10-0.90); Neutrophils Absolute Auto 4.56 K/mm3 (1.70-7.20); Neutrophils Percent Auto 74.1 % (50.0-70.0); Platelet Count Result 287 K/mm3 (150-420); Red Blood Count 4.66 M/mm3 (4.20-5.40); Red Cell Distribution Width 11.7 % (11.6-14.4); White Blood Count 6.2 K/mm3 (4.8-10.8)
[2024-05-18 18:15] LABS: INR 1.1; Partial Thromboplastin Time 34.9 Sec (23.9-30.70); Prothrombin Time 11.5 Seconds (9.50-12.1)
[2024-05-18 18:17] LABS: D Dimer 0.57 mg/L (0.19-0.50)
[2024-05-18 18:19] LABS: Lactic Acid Reflex 1.4 mmol/L (0.4-2.0)
[2024-05-18 18:28] LABS: Alanine Aminotransferase 15 U/L (14-59); Albumin Level 3.1 g/dL (3.4-5.0); Alkaline Phosphatase 58 U/L (46-116); Anion Gap 10 mmol/L (4-12); Aspartate Amino Transferase 24 U/L (15-37); Bilirubin,Total 0.4 mg/dL (0.00-1.00); Blood Urea Nitrogen 5 mg/dL (7-18); Carbon Dioxide 29 mmol/L (21-32); Chloride 98 mmol/L (98-108); Estimated CRCL calculation 89 ml/min; Estimated Glomerular Filt Rate > 60; Glucose 129 mg/dL (70-99); Osmolality Calculated 283 mOsm/kg (285-295); Potassium 2.9 mmol/L (3.5-5.1); Sodium 137 mmol/L (136-145); Total Protein 7.2 g/dL (6.4-8.2)
[2024-05-18 18:29] LABS: Thyroid Stimulating Hormone 0.81 uIU/mL (0.36-3.74); Troponin I < 4.0 ng/L (0.00-60.4)
[2024-05-18 18:45] LABS: Add Urine Microscopic? YES; Appearance Urine Clear (Clear); Bilirubin Urine Negative (Negative); Blood Urine 3+ (Negative); Color Urine Light Yellow (Yellow); Glucose Urine UA Negative (Negative); Ketones Urine Negative (Negative); Leukocyte Esterase Ur Trace LEU/UL (Negative); Nitrate Urine Negative (Negative); Protein Urine Negative (Negative); Specific Grav Ur <= 1.005 (1.010-1.020); Urobilinogen Urine 0.2 mg/dL (0.2-1.0)
[2024-05-18 18:47] LABS: Bacteria Urine 1+ /hpf; Pregnancy On Board Control Positive; Squamous Epithelial Cell Urine Few /hpf (Few); Urine Pregnancy Test Negative; WBC Urine 0-3 /hpf (0-3)
[2024-05-18] MEDS: POTASSIUM CHLORIDE 20 MEQ PACKET (FOR LIQUID) 40 MEQ PO (19:06)
[2024-05-18] MEDS: LACTATED RINGERS 1,000 ML 999 ML IV CONT (19:07)
--- NOTE | 2024-05-18 19:17 | PC.NURSE ---
report to meghna medina
--- NOTE | 2024-05-18 20:02 | PC.NURSE ---
ERP Dr. Andrews at patient bedside for update of results and plan of care. field installation technician providing patient with food per patient request and ERP okay.
[2024-05-18] MEDS: AZITHROMYCIN 500 MG/NS 250 ML 500 MG/250 ML BAG 250 MG IVPB (20:36)
--- NOTE | 2024-05-18 22:00 | PC.NURSE ---
Patient provided incentive spirometer. Education provided on how to use incentive spirometer. Total volume 1500 x 3.
[2024-05-20 02:22] LABS: Cortisol Random 26.6 mcg/dL
--- NOTE | 2024-05-20 12:47 | PC.NURSE ---
PRELIMINARY BLOOD CULTURE REPORT: NO GROWTH TO DATE.
== END 2024-05-18 22:15 | disposition home or self-care (01) ==
PROVIDERS: Emergency Provider Internal Medicine Critical Care Medicine; PCP Nurse Practitioner Family
DX: J18.9 Pneumonia, unspecified organism (principal); J06.9 Acute upper respiratory infection, unspecified; Z20.822 Contact with and (suspected) exposure to COVID-19
CPT/HCPCS: 36415; 71275; 80053; 81001; 81025; 82533; 82672; 83605; 84144; 84443; 84484; 85025; 85380; 85610; 85730; 87040; 87637; 87651; 93005; 96361; 96365; 96367; 99284; A9270; J0456; J0696; J7120; Q9967

== ENCOUNTER 2024-05-26 12:19 | Outpatient (CLI) | payer OTHER, SELFPAY ==
[2024-05-26 12:52] LABS: Hemoglobin A1C 4.9 % (<5.7)
[2024-05-26 13:24] LABS: Cholesterol 215 mg/dL (0-200); HDL Direct 43 mg/dL (40-60); LDL Cholesterol Calculated 128 mg/dL (<130); Potassium 4.3 mmol/L (3.5-5.1); Triglycerides 221 mg/dL (0-150)
[2024-05-28 07:54] LABS: Vitamin D 25 Hydroxy 34 ng/mL (30-100)
[2024-05-30 20:33] LABS: Red Blood Cell Folate 568 ng/mL RBC (>280)
[2024-05-31 15:24] LABS: Homocysteine 7.3 umol/L (<10.4)
== END 2024-05-26 12:20 | disposition home or self-care (01) ==
LOC: CHSLAB 12:20
PROVIDERS: PCP Nurse Practitioner Family; Visit Provider Nurse Practitioner Family
DX: Z00.00 Encounter for general adult medical examination without abnormal findings (principal); E87.6 Hypokalemia; E78.5 Hyperlipidemia, unspecified; R79.89 Other specified abnormal findings of blood chemistry; Z15.89 Genetic susceptibility to other disease
CPT/HCPCS: 36415; 80061; 82306; 82747; 83036; 83090; 84132

== ENCOUNTER 2024-11-14 11:04 | Outpatient (CLI) | payer OTHER, SELFPAY ==
[2024-11-14 11:18] LABS: Basophils Percent Auto 0.4 % (0.2-1.2); Eosinophils Absolute Auto 0.2 K/mm3 (0-0.3); Eosinophils Percent Auto 3.6 % (0-4.4); Hematocrit 43.1 % (37.0-47.0); Hemoglobin 14.7 g/dL (12.0-15.0); Immature Granulocyte Absolute 0.01 K/mm3 (0.00-0.031); Immature Granulocyte Percent A 0.2 % (0-0.5); Lymphocytes Absolute Auto 2.17 K/mm3 (0.9-3.2); Mean Corpuscular HGB Conc 34.1 g/dl (32-36); Mean Corpuscular Hemoglobin 31.8 pg (26-34); Mean Corpuscular Volume 93.3 fl (80-100); Mean Platelet Volume 9.9 fl (7.4-10.4); Monocytes Absolute Auto 0.4 K/mm3 (0.1-0.6); Monocytes Percent Auto 8.3 % (2.6-8.5); Neutrophils Absolute Auto 2.5 K/mm3 (1.3-6.7); Neutrophils Percent Auto 46.5 % (45.5-73.1); Platelet Count Result 270 k/mm3 (150-375); Red Blood Count 4.62 M/mm3 (4.2-5.4); White Blood Count 5.3 K/mm3 (4.5-10.0)
--- OUTSIDE RECORDS SUMMARY | 2024-11-14 11:25 | XMS_ITS | Clinical Summary ---
Author Organization [facility] Josue Marc Address [address] [place] [address] Care Team Providers Care Warehouse Distribution Associate Name Role Phone Unavailable Primary Care Provider Unavailabl e Allergies No known active allergies Medications fluvoxaMINE (LUVOX) 100 mg tablet Take 100 mg by mouth 2 times daily. Active Active Problems No known active problems Encounters Date Type Department Care Team Description 11/14/2024 10:30 AM CDT Office Visit [facility] Oncology and Hematology - [place] [address] [facility] [address] [place] [address] Rogers Soliman MD MTHFR mutation (Primary Dx) from Last 3 Months Family History Medical History Relation Name Comments No Known Problems Child 1 No Known Problems Child 2 No Known Problems Father Diabetes Mother Relation Name Status Comments Child 1 Alive Child 2 Alive Father Alive Mother Alive Social History Tobacco Use Types Packs/Day Years Used Date Smoking Tobacco: Never Smokeless Tobacco: Never Tobacco Cessation:Counseling Given: Not Answered Alcohol Use Standard Drinks/Week Comments Never 0 (1 standard drink = 0.6 oz pur e alcohol) Comments Unknown Sex and Gender Information Value Date Recorded Sex Assigned at Not on file 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 Gender Identity Not on file Sexual Orientation Not on file Last Filed Vital Signs Vital Sign Reading Time Taken Comments Blood Pressure 118/78 11/14/2024 10:22 AM CDT Pulse 86 11/14/2024 10:22 AM CDT Temperature 36.6 C (97.8 F) 11/14/2024 10:22 AM CDT Respiratory Rate 17 11/14/2024 10:22 AM CDT Oxygen Saturation 97% 11/14/2024 10:22 AM CDT Inhaled Oxygen Concentration - - Weight 99.6 kg (219 lb 9.6 oz) 11/14/2024 10:22 AM CDT Height 162.6 cm (5' 4 ) 11/14/2024 10:22 AM CDT Body Mass Index 37.69 11/14/2024 10:22 AM CDT Plan of Treatment Upcoming Encounters Date Type Department Care Team (Late st Contact Info) Description 11/30/2024 4:30 PM CDT Telephone Check Up [facility] Oncology and Hematology - [place] [address] [facility] [address] [place] [address] Rogers Soliman MD [address] [facility] [address] [place] [address] Health Maintenance Due Date Last Done Comments DTAP/TDAP/TD VACCINES (1 - Tdap) 2009 HEPATITIS B VACCINES (1 of 3 - 19+ 3-dose series) 2009 Preventative Visit-Managed Medicaid 2009 HPV/Cotest (21-29) 2011 CERVICAL CANCER SCREENING 2020 HPV/Cotest (30-65) 2020 PAP SMEAR 2020 INFLUENZA VACCINE (#1) 2024 HPV VACCINES Aged Out No longer eligi ble based on patient's age to complete this topic Insurance [place]ICAID [place]
--- OUTSIDE RECORDS SUMMARY | 2024-11-14 11:25 | XMS_ITS | Encounter Summary ---
Author Organization [facility] Address [address] [place] [address] Care Team Providers Care Surgical Coordinator Name Role Phone Unavailable Primary Care Provider Unavailabl e Reason for Visit * Reason Comments Establish Care Encounter Details Date Type Department Care Team (Late st Contact Info) Description 11/14/2024 10:30 AM CDT Office Visit [facility] Oncology and Hematology - [place] [address] 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 Problem list There is no problem list on file for this patient. Previous TREATMENT ? Measurable Disease ? Reason for Visit Juanita Enriquez is a 34 y.o. female who was referred for consultation for hypercoagulable state. History of present illness This is a pleasant 34-year-old female with history of obsessive- compulsive disorder currently on treatment with fluvoxamine for last 6 months duration. She had genetic testing ordered by the psychiatrist that showed MTHFR mutation heterozygous state. She denies any previous history of thromboembolic events including stroke and heart attack. She had miscarriage in 2010. She denies any chest pain and shortness of breath. She has gained 15 pound weight in last 6 months duration. Currently she is taking vitamins. There is no family history of blood clots as well. Denies any other new complaints. Past Medical History Past Medical History: Diagnosis Date Depression History of OCD (obsessive compulsive disorder) Hyperlipidemia PMDD (premenstrual dysphoric disorder) Surgical History No past surgical history on file. Medications Current Outpatient Medications Medication Sig Dispense Refill fluvoxaMINE (LUVOX) 100 mg tablet Take 100 mg by mouth 2 times daily. No current facility-administered medications for this visit. Allergies No Known Allergies Immunizations: There is no immunization history on file for this patient. Family History Family History Problem Relation Name Age of Onset No Known Problems Father Diabetes Mother No Known Problems Child No Known Problems Child Social History Social History Tobacco Use Smoking status: Never Smokeless tobacco: Never Substance Use Topics Alcohol use: Never Review of Systems Constitutional: Patient did not mention fever; no night sweats; no anorexia; no weight loss; no fatique NEENT: Patient did not mention headache; no change in vision; no change in hearing; no sore throat;no dysphagia Respiratory: Patient did not mention shortness of breath; no pleuritic chest pain; no cough; no hemoptysis Cardiac: Patient did not mention cardiac-like chest pain; no palpitations; no orthopnea; no PND; noDOE Breasts: Patient did not mention tenderness; no masses GI: Patient did not mention abdominal pain; no nausea; no vomiting; no diarrhea; no hematochezia; no melena : Patient did not mention dysuria; no frequency; no hesitancy; no hematuria HUMAN SERVICE COORDINATOR: Musculosketetal: Patient did not mention bone pain; no arthralgia; no joint swelling; no myalgia; Skin: Patient did not mention pruritis; no rash; no petechiae; no ecchymoses Endocrine: Patient did not mention polydipsia; no polyuria; no unusual weight gain Neuro: Patient did not mention headache; no change in vision; no sensory changes; no muscle weakness; no confusion; no seizures Psych: Patient did not mention anxiety; no depression; Physical Exam Vitals: As per nursing note Constitutional: Well developed, well nourished, no acute distress, non-toxic appearance Teeth and gum. No signs of infection or swelling. Eyes: PERRL, conjunctiva normal HEENT: Atraumatic, external ears normal, nose normal, oropharynx moist, no pharyngeal exudates. no sinus tenderness Neck- normal range of motion, no tenderness, supple Respiratory: No respiratory distress, normal breath sounds, no rales, no wheezing Cardiovascular: Normal rate, normal rhythm, no murmurs, no gallops, no rubs GI: Soft, nondistended, normal bowel sounds, nontender, no splenomegaly, no hepatomegaly, no mass, no rebound, no guarding : No costovertebral angle tenderness Musculoskeletal: No edema, no tenderness, no deformities. Back- no tenderness Integument: Well hydrated, no rash, Digits and nails inspection normal Lymphatic: No lymphadenopathy noted Neurologic: Alert & oriented x 3, CN 2-12 normal, normal motor function, normal sensory function, no focal deficits noted Psychiatric: Speech and behavior appropriate ? labs No results found for this or any previous visit (from the past 24 hours). Pathology ? Imaging & Other Studies Performance Status? Assessment / Plan: ? Hypercoagulable state. Patient is a 34-year-old female with history of obsessive-compulsive disorder currently on fluvoxamine for last 6 months duration. She had genetic testing ordered by psychiatrist that showed MTHFR mutation heterozygous state. She has no personal history of thromboembolic events including stroke and heart attack. She had history of miscarriage in 2010. Currently she is taking vitamin. I have discussed the genetic testing results and significance of thromboembolic events. I will check homocystine level. She will continue vitamin. I will also check vitamin B12 and folic acid level. No need for aspirin therapy as she has no personal history of blood clots. I recommended regular exercise and weight loss. I also discussed signs and symptoms of blood clot and various ways to prevent it. I have answered all the questions to patient and the mother satisfaction. Obsessive-compulsive disorder. Patient is on fluvoxamine. Thank you very much for allowing me to participate in Juanita Enriquez's evaluation and management. Please feel free to contact if I can be of any further assistance in your patient???s care requiring hematology or oncology evaluation. Sincerely, ? ? Rogers Soliman M.D. cell TOBACCO COUNSELING She is not a tobacco/nicotine user. Rogers Soliman MD ,11/14/2024 11:06 AM ? Total time spent 60 minutes, two third of the total time spent counseling patient [id number]. CC:?. documented in this encounter Plan of Treatment Upcoming Encounters Date Type Department Care Team (Late st Contact Info) Description 11/30/2024 4:30 PM CDT Telephone Check Up [facility] Oncology and Hematology - [place] [address] [facility] [address] [place] [address] Rogers Soliman MD [address] [facility] [address] [place] [address] Scheduled Orders Name Type Priority Associated Diagnoses Orde r Schedule HOMOCYSTEINE Lab Routine MTHFR mutation Expected: 11/14/2024, Expires: 11/14/2025 CBC WITH DIFFERENTIAL Lab Stat MTHFR mutation Expected: 11/14/2024, Expires: 11/14/2025 COMPREHENSIVE METABOLIC PANEL Lab Stat MTHFR mutation Expected: 11/14/2024, Expires: 11/14/2025 VITAMIN B12 AND FOLATE Lab Routine MTHFR mutation Expected: 11/14/2024, Expires: 11/14/2025 documented as of this encounter Visit Diagnoses Diagnosis MTHFR mutation- Primary Disturbances of sulphur-bearing amino-acid metabolism documented in this encounter
[2024-11-14 12:45] LABS: Alanine Aminotransferase 24 U/L (6-35); Albumin Level 4.1 g/dL (3.5-5.1); Alkaline Phosphatase 54 U/L (38-126); Anion Gap 6 mmol/L (4-12); Aspartate Amino Transferase 40 U/L (14-36); Bilirubin,Total 0.3 mg/dL (0.2-1.3); Blood Urea Nitrogen 14 mg/dL (7-17); Calcium 8.9 mg/dL (8.4-10.2); Carbon Dioxide 26 mmol/L (22-30); Chloride 107 mmol/L (98-107); Estimated Glomerular Filt Rate > 60; Glucose 95 mg/dL (65-110); Potassium 4.1 mmol/L (3.4-5.0); Sodium 139 mmol/L (137-145)
[2024-11-14 14:33] LABS: Folic Acid > 20.0 ng/mL (2.76->20)
[2024-11-16 10:13] LABS: Homocysteine 8.1 umol/L (<10.4)
== END 2024-11-14 11:05 | disposition home or self-care (01) ==
LOC: ANHLAB 11:05
PROVIDERS: PCP Nurse Practitioner Family; Visit Provider Internal Medicine Hematology & Oncology
DX: Z15.89 Genetic susceptibility to other disease (principal)
CPT/HCPCS: 36415; 80053; 82607; 82746; 83090; 85025